=== PATIENT | female | born 1950 | race Caucasian/White ===

== ENCOUNTER 2021-08-15 09:55 | Observation (INO) | payer MEDICARE, SELFPAY ==
[2021-08-15 10:21] LABS: #Basophils 0.1 thou/uL (0.0-0.2); #Eosinphils 0.1 thou/uL (0.0-0.7); #Lymphocytes 1.7 thou/uL (1.20-3.40); #Monocytes 0.5 thou/uL (0.11-0.59); #Neutrophils 5.8 thou/uL (1.40-6.50); %Eosinophils 1.6 % (0.0-10.0); %Lymphocytes 20.5 % (21.0-51.0); %Monocytes 6.3 % (0.0-10.0); %Neutrophils 70.7 % (42.0-75.0); Hemoglobin 14.3 g/dL (12.0-16.0); Mean Corpuscular HGB CONC 32.2 g/dL (32.0-36.0); Mean Corpuscular Hemoglobin 29.8 pg (27.0-31.0); Mean Corpuscular Volume 92.7 fL (78.0-98.0); Mean Platelet Volume 7.4 fL (7.4-10.4); Platelet Count 306 thou/uL (130-400); RBC Distribution Width 12.5 % (11.5-14.5); White Blood Cell (WBC) Count 8.3 thou/uL (4.8-10.8)
[2021-08-15 10:36] LABS: ALT (SGPT) 18 U/L (8-55); AST (SGOT) 19 U/L (5-34); Albumin 4.1 g/dL (3.4-4.8); Alkaline Phosphatase 70 U/L (40-110); Anion Gap 14 mmol/L (10-20); BUN (Urea Nitrogen) 15 mg/dL (9.8-20.1); Bilirubin, Total 0.5 mg/dL (0.2-1.2); Calc. Creatinine Clearance 0 mL/min (70-130); Calcium 9.1 mg/dL (7.8-10.44); Carbon Dioxide 24 mmol/L (23-31); Chloride 107 mmol/L (98-107); Globulin 2.8 g/dL (2.4-3.5); Glucose 128 mg/dL (80-115); Potassium 3.6 mmol/L (3.5-5.1); Protein, Total 6.9 g/dL (5.8-8.1); Sodium 141 mmol/L (136-145)
[2021-08-15 12:17] LABS: Bilirubin Negative (Negative); Blood, Urine Negative (Negative); Clarity Clear (Clear); Glucose, Urine (Dipstick) Normal (Negative); Ketone, Urine Negative (Negative); Leukocyte Negative Leu/uL (Negative); Nitrite Negative (Negative); Protein, Urine (Dipstick) Negative (Neg-Trace); Specific Gravity, Urine 1.022 (1.002-1.036); Urobilinogen Normal mg/dL (Less than 2); pH, Urine 6.5 (5.0-9.0)
[2021-08-15 23:00] VITALS: BMI 19.6
[2021-08-15 23:35] LABS: SARS-CoV-2 NAA Rapid Test Not Detected (NotDetected)
[2021-08-16] MEDS ORDERED: Ondansetron PF 4 MG/2 ML Vial IVP PRN (02:06)
[2021-08-16] MEDS ORDERED: Ondansetron ODT 4 MG TAB PO PRN (02:06)
[2021-08-16] MEDS ORDERED: Acetaminophen 650 MG Suppository PR PRN (02:06)
[2021-08-16 05:52] LABS: #Basophils 0.1 thou/uL (0.0-0.2); #Eosinphils 0.3 thou/uL (0.0-0.7); #Lymphocytes 2.7 thou/uL (1.20-3.40); #Monocytes 0.9 thou/uL (0.11-0.59); #Neutrophils 5.9 thou/uL (1.40-6.50); %Basophils 1.1 % (0.0-1.0); %Eosinophils 3.5 % (0.0-10.0); %Lymphocytes 27.5 % (21.0-51.0); %Monocytes 8.9 % (0.0-10.0); Hemoglobin 13.7 g/dL (12.0-16.0); Mean Corpuscular HGB CONC 32.2 g/dL (32.0-36.0); Mean Corpuscular Hemoglobin 29.9 pg (27.0-31.0); Mean Corpuscular Volume 92.9 fL (78.0-98.0); Mean Platelet Volume 7.6 fL (7.4-10.4); Platelet Count 308 thou/uL (130-400); RBC Distribution Width 12.6 % (11.5-14.5); Red Blood Cell (RBC) Count 4.58 mill/uL (4.20-5.40); White Blood Cell (WBC) Count 9.9 thou/uL (4.8-10.8)
[2021-08-16 06:18] LABS: Anion Gap 10 mmol/L (10-20); BUN (Urea Nitrogen) 16 mg/dL (9.8-20.1); Calc. Creatinine Clearance 63 mL/min (70-130); Calcium 8.8 mg/dL (7.8-10.44); Carbon Dioxide 24 mmol/L (23-31); Chloride 108 mmol/L (98-107); Glucose 104 mg/dL (80-115); Potassium 3.6 mmol/L (3.5-5.1); Sodium 138 mmol/L (136-145)
[2021-08-17] MEDS: Donepezil HCl 10 MG TAB PO SCH (10:00)
[2021-08-17] MEDS: Losartan 25 MG TAB PO SCH (10:00)
[2021-08-17 10:08] LABS: Thyroid Stimulating Hormone 1.7777 uIU/mL (0.35-4.94)
[2021-08-17] MEDS: Rosuvastatin 10 MG TAB PO SCH (20:44)
[2021-08-18] MEDS: Losartan 25 MG TAB PO SCH (08:16)
[2021-08-18] MEDS: Donepezil HCl 10 MG TAB PO SCH (08:16)
[2021-08-18] MEDS: Folic Acid 1 MG TAB PO SCH (08:16)
[2021-08-18] MEDS: Rosuvastatin 10 MG TAB PO SCH (20:41)
[2021-08-19] MEDS: Folic Acid 1 MG TAB PO SCH (08:04)
[2021-08-19] MEDS: Donepezil HCl 10 MG TAB PO SCH (08:04)
[2021-08-19] MEDS: Losartan 25 MG TAB PO SCH (08:04)
[2021-08-19] MEDS: Rosuvastatin 10 MG TAB PO SCH (20:20)
[2021-08-20] MEDS: Folic Acid 1 MG TAB PO SCH (10:05)
[2021-08-20] MEDS: Donepezil HCl 10 MG TAB PO SCH (10:05)
[2021-08-20] MEDS: Losartan 25 MG TAB PO SCH (10:05)
[2021-08-20] MEDS: Rosuvastatin 10 MG TAB PO SCH (19:59)
[2021-08-21] MEDS: Folic Acid 1 MG TAB PO SCH (10:06)
[2021-08-21] MEDS: Losartan 25 MG TAB PO SCH (10:06)
[2021-08-21] MEDS: Donepezil HCl 10 MG TAB PO SCH (10:07)
[2021-08-21] MEDS: Rosuvastatin 10 MG TAB PO SCH (21:03)
[2021-08-22] MEDS: Donepezil HCl 10 MG TAB PO SCH (07:46)
[2021-08-22] MEDS: Losartan 25 MG TAB PO SCH (07:47)
[2021-08-22] MEDS: Acetaminophen 325 MG TAB PO PRN (07:47)
[2021-08-22] MEDS: Folic Acid 1 MG TAB PO SCH (07:47)
[2021-08-22] MEDS: Rosuvastatin 10 MG TAB PO SCH (19:38)
[2021-08-22 20:22] LABS: SARS-CoV-2 PCR by NAA Not Detected (NotDetected)
[2021-08-23] MEDS: Losartan 25 MG TAB PO SCH (09:22)
[2021-08-23] MEDS: Folic Acid 1 MG TAB PO SCH (09:22)
[2021-08-23] MEDS: Donepezil HCl 10 MG TAB PO SCH (09:22)
[2021-08-23] MEDS: Rosuvastatin 10 MG TAB PO SCH (20:43)
[2021-08-24] MEDS: Losartan 25 MG TAB PO SCH (10:16)
[2021-08-24] MEDS: Donepezil HCl 10 MG TAB PO SCH (10:16)
[2021-08-24] MEDS: Folic Acid 1 MG TAB PO SCH (10:16)
[2021-08-24] MEDS: Rosuvastatin 10 MG TAB PO SCH (21:19)
[2021-08-25] MEDS: Losartan 25 MG TAB PO SCH (09:44)
[2021-08-25] MEDS: Folic Acid 1 MG TAB PO SCH (09:45)
[2021-08-25] MEDS: Donepezil HCl 10 MG TAB PO SCH (09:45)
[2021-08-25] MEDS: Rosuvastatin 10 MG TAB PO SCH (20:27)
[2021-08-26] MEDS: Folic Acid 1 MG TAB PO SCH (09:05)
[2021-08-26] MEDS: Donepezil HCl 10 MG TAB PO SCH (09:05)
[2021-08-26] MEDS: Losartan 25 MG TAB PO SCH (09:05)
[2021-08-26] MEDS: Rosuvastatin 10 MG TAB PO SCH (20:29)
[2021-08-27] MEDS: Donepezil HCl 10 MG TAB PO SCH (09:57)
[2021-08-27] MEDS: Folic Acid 1 MG TAB PO SCH (09:58)
[2021-08-27] MEDS: Losartan 25 MG TAB PO SCH (09:58)
[2021-08-27] MEDS: Rosuvastatin 10 MG TAB PO SCH (19:46)
[2021-08-28] MEDS: Losartan 25 MG TAB PO SCH (09:20)
[2021-08-28] MEDS: Donepezil HCl 10 MG TAB PO SCH (09:21)
[2021-08-28] MEDS: Folic Acid 1 MG TAB PO SCH (09:21)
[2021-08-28] MEDS: Rosuvastatin 10 MG TAB PO SCH (20:34)
[2021-08-29] MEDS: Donepezil HCl 10 MG TAB PO SCH (10:26)
[2021-08-29] MEDS: Folic Acid 1 MG TAB PO SCH (10:27)
[2021-08-29] MEDS: Losartan 25 MG TAB PO SCH (10:27)
[2021-08-29 16:11] LABS: SARS-CoV-2 PCR by NAA Not Detected (NotDetected)
[2021-08-29] MEDS: Rosuvastatin 10 MG TAB PO SCH (20:41)
[2021-08-30] MEDS: Donepezil HCl 10 MG TAB PO SCH (12:09)
[2021-08-30] MEDS: Losartan 25 MG TAB PO SCH (12:09)
[2021-08-30] MEDS: Folic Acid 1 MG TAB PO SCH (12:09)
[2021-08-30] MEDS: Rosuvastatin 10 MG TAB PO SCH (21:05)
[2021-08-31] MEDS: Donepezil HCl 10 MG TAB PO SCH (08:12)
[2021-08-31] MEDS: Folic Acid 1 MG TAB PO SCH (08:12)
[2021-08-31] MEDS: Losartan 25 MG TAB PO SCH (08:12)
[2021-08-31] MEDS: Rosuvastatin 10 MG TAB PO SCH (20:32)
[2021-09-01] MEDS: Folic Acid 1 MG TAB PO SCH (08:58)
[2021-09-01] MEDS: Donepezil HCl 10 MG TAB PO SCH (08:58)
[2021-09-01] MEDS: Losartan 25 MG TAB PO SCH (08:58)
[2021-09-01] MEDS: Rosuvastatin 10 MG TAB PO SCH (21:09)
[2021-09-02] MEDS: Donepezil HCl 10 MG TAB PO SCH (09:28)
[2021-09-02] MEDS: Losartan 25 MG TAB PO SCH (09:28)
[2021-09-02] MEDS: Folic Acid 1 MG TAB PO SCH (09:28)
[2021-09-02] MEDS: Rosuvastatin 10 MG TAB PO SCH (23:12)
[2021-09-03] MEDS: Donepezil HCl 10 MG TAB PO SCH (10:33)
[2021-09-03] MEDS: Folic Acid 1 MG TAB PO SCH (10:33)
[2021-09-03] MEDS: Losartan 25 MG TAB PO SCH (10:33)
[2021-09-03] MEDS: Acetaminophen 325 MG TAB PO PRN (21:01)
[2021-09-03] MEDS: Rosuvastatin 10 MG TAB PO SCH (21:02)
[2021-09-04] MEDS: Donepezil HCl 10 MG TAB PO SCH (10:39)
[2021-09-04] MEDS: Folic Acid 1 MG TAB PO SCH (10:39)
[2021-09-04] MEDS: Losartan 25 MG TAB PO SCH (11:00)
[2021-09-04] MEDS: Rosuvastatin 10 MG TAB PO SCH (21:08)
[2021-09-05] MEDS: Donepezil HCl 10 MG TAB PO SCH (09:35)
[2021-09-05] MEDS: Losartan 25 MG TAB PO SCH (09:35)
[2021-09-05] MEDS: Folic Acid 1 MG TAB PO SCH (09:35)
[2021-09-05 16:27] LABS: SARS-CoV-2 PCR by NAA Not Detected (NotDetected)
[2021-09-05] MEDS: Rosuvastatin 10 MG TAB PO SCH (20:49)
[2021-09-06] MEDS: Losartan 25 MG TAB PO SCH (10:11)
[2021-09-06] MEDS: Folic Acid 1 MG TAB PO SCH (10:11)
[2021-09-06] MEDS: Donepezil HCl 10 MG TAB PO SCH (10:11)
[2021-09-06] MEDS: Rosuvastatin 10 MG TAB PO SCH (20:03)
[2021-09-07] MEDS: Losartan 25 MG TAB PO SCH (08:32)
[2021-09-07] MEDS: Donepezil HCl 10 MG TAB PO SCH (08:32)
[2021-09-07] MEDS: Folic Acid 1 MG TAB PO SCH (08:32)
[2021-09-07] MEDS: Rosuvastatin 10 MG TAB PO SCH (19:55)
[2021-09-08 07:52] VITALS: BP 111/87; TEMP 97.9
[2021-09-08] MEDS: Losartan 25 MG TAB PO SCH (08:40)
[2021-09-08] MEDS: Folic Acid 1 MG TAB PO SCH (08:40)
[2021-09-08] MEDS: Donepezil HCl 10 MG TAB PO SCH (08:40)
== END 2021-09-08 17:00 ==
LOC: ERS 09:55 → SURG A 17:46 → OBSVTOIN 08-21 20:10 → INTOOBSV 08-21 20:10
PROVIDERS: ADMIT Internal Medicine; ATTEND Internal Medicine
DX: G30.9 Alzheimer's disease, unspecified (principal); F02.80 Dementia in other diseases classified elsewhere, unspecified severity, without behavioral disturbance, psychotic disturbance, mood disturbance, and anxiety; E53.8 Deficiency of other specified B group vitamins; Z85.3 Personal history of malignant neoplasm of breast; Z79.899 Other long term (current) drug therapy; Z20.822 Contact with and (suspected) exposure to COVID-19
CPT/HCPCS: 70450; 71045; 80048; 80053; 81003; 82533; 82607; 82746; 82962; 83735; 84443; 85025 ×2; 93005; 97116; 97139 ×2; 99285; U0002; U0003 ×3; U0005 ×3; 36415; 36416; G0378

== ENCOUNTER 2022-06-17 16:05 | Emergency (ER) | payer MEDICARE ==
[2022-06-17 17:04] LABS: #Basophils 0.1 thou/uL (0.0-0.2); #Eosinphils 0.7 thou/uL (0.0-0.7); #Lymphocytes 2.3 thou/uL (1.20-3.40); #Neutrophils 7.8 thou/uL (1.40-6.50); %Eosinophils 5.9 % (0.0-10.0); %Lymphocytes 19.2 % (21.0-51.0); %Monocytes 8.2 % (0.0-10.0); %Neutrophils 65.8 % (42.0-75.0); Hemoglobin 13.5 g/dL (12.0-16.0); Mean Corpuscular HGB CONC 32.3 g/dL (32.0-36.0); Mean Corpuscular Hemoglobin 30.3 pg (27.0-31.0); Mean Corpuscular Volume 93.7 fl (78.0-98.0); Mean Platelet Volume 8.3 fL (7.4-10.4); Platelet Count 249 10x3/uL (130-400); RBC Distribution Width 12.3 % (11.5-14.5); Red Blood Cell (RBC) Count 4.45 mill/uL (4.20-5.40); White Blood Cell (WBC) Count 11.8 10x3/uL (4.8-10.8)
[2022-06-17 17:29] LABS: ALT (SGPT) 16 U/L (8-55); AST (SGOT) 14 U/L (5-34); Albumin 4.1 g/dL (3.4-4.8); Alkaline Phosphatase 88 U/L (40-110); Anion Gap 15 mmol/L (10-20); BUN (Urea Nitrogen) 14 mg/dL (9.8-20.1); Bilirubin, Total 0.3 mg/dL (0.2-1.2); Calc. Creatinine Clearance 0 mL/min (70-130); Calcium 9.7 mg/dL (7.8-10.44); Carbon Dioxide 25 mmol/L (23-31); Chloride 105 mmol/L (98-107); Estimated GFR 94; Glucose 103 mg/dL (83-110); Potassium 3.5 mmol/L (3.5-5.1); Protein, Total 7.1 g/dL (5.8-8.1); Sodium 141 mmol/L (136-145)
[2022-06-17 21:18] LABS: Bilirubin Negative (Negative); Blood, Urine Negative (Negative); Clarity Clear (Clear); Glucose, Urine (Dipstick) Normal (Negative); Ketone, Urine Negative (Negative); Leukocyte Negative Leu/uL (Negative); Nitrite Negative (Negative); Protein, Urine (Dipstick) Negative (Neg-Trace); Specific Gravity, Urine 1.018 (1.002-1.036); Urobilinogen Normal mg/dL (Less than 2)
== END 2022-06-17 22:24 | disposition home or self-care (01) ==
LOC: ERS 16:05
DX: F03.90 Unspecified dementia, unspecified severity, without behavioral disturbance, psychotic disturbance, mood disturbance, and anxiety (principal); E78.5 Hyperlipidemia, unspecified; Z79.899 Other long term (current) drug therapy
CPT/HCPCS: 36415; 51701; 70450; 71045; 80053; 81003; 85025; 93005